=== PATIENT | female | born 1975 | race Hispanic/Latino ===

== ENCOUNTER 2016-08-25 11:22 | Outpatient (CLI) | payer OTHER ==
[2016-08-25 13:05] LABS: #Basophils 0.1 thou/uL (0.0-0.2); #Eosinphils 0.1 thou/uL (0.0-0.7); #Lymphocytes 1.8 thou/uL (1.20-3.40); #Monocytes 0.9 thou/uL (0.11-0.59); #Neutrophils 7.8 thou/uL (1.40-6.50); %Basophils 0.9 % (0.0-1.0); %Eosinophils 0.9 % (0.0-10.0); %Monocytes 8.2 % (0.0-10.0); %Neutrophils 72.9 % (42.0-75.0); Hemoglobin 10.4 g/dL (12.0-16.0); Mean Corpuscular HGB CONC 33.4 g/dL (32.0-36.0); Mean Corpuscular Hemoglobin 28.5 pg (27.0-31.0); Mean Corpuscular Volume 85.5 fl (81.0-99.0); Mean Platelet Volume 5.9 fL (7.4-10.4); Platelet Count 375 thou/uL (130-400); Red Blood Cell (RBC) Count 3.66 mill/uL (4.20-5.40); White Blood Cell (WBC) Count 10.7 thou/uL (4.8-10.8)
[2016-08-25 17:20] LABS: HIV (1/2) Antibody/Antigen Non-Reactive (NonReactive); HIV 1/2 INDEX 0.07 S/CO (<1.00)
== END 2016-08-25 11:23 | disposition home or self-care (01) ==
LOC: MADLABBHPM 11:22
PROVIDERS: ATTEND Family Medicine
DX: O09.523 Supervision of elderly multigravida, third trimester (principal)
CPT/HCPCS: 82950; 85025; 86592; 86850; 87389

== ENCOUNTER 2016-11-15 19:03 | Emergency (ER) | payer OTHER ==
[~2016-11-15 19:03] MED LIST: Iopamidol 370 76% 100 ML VIAL ONE; Sodium Chloride 0.9% 1,000 ML BAG ONE; Sodium Chloride 0.9% 100 ML BAG ONE
[2016-11-15] MEDS ORDERED: Ibuprofen 600 MG TAB ONE (19:37)
[2016-11-15 19:48] LABS: #Basophils 0.1 thou/uL (0.0-0.2); #Lymphocytes 1.1 thou/uL (1.20-3.40); #Monocytes 0.7 thou/uL (0.11-0.59); #Neutrophils 16.3 thou/uL (1.40-6.50); %Basophils 0.3 % (0.0-1.0); %Lymphocytes 6.3 % (21.0-51.0); %Monocytes 3.6 % (0.0-10.0); %Neutrophils 89.8 % (42.0-75.0); Mean Corpuscular HGB CONC 32.8 g/dL (32.0-36.0); Mean Corpuscular Hemoglobin 26.6 pg (27.0-31.0); Mean Corpuscular Volume 81.2 fl (81.0-99.0); Mean Platelet Volume 5.2 fL (7.4-10.4); Platelet Count 543 thou/uL (130-400); RBC Distribution Width 16.2 % (11.5-14.5); White Blood Cell (WBC) Count 18.2 thou/uL (4.8-10.8)
[2016-11-15 20:02] LABS: ALT (SGPT) 19 U/L (8-55); AST (SGOT) 14 U/L (5-34); Albumin 3.5 g/dL (3.5-5.0); Alkaline Phosphatase 113 U/L (40-150); Anion Gap 14 mmol/L (10-20); BUN (Urea Nitrogen) 8 mg/dL (7.0-18.7); Bilirubin, Total 0.6 mg/dL (0.2-1.2); Calc. Creatinine Clearance 0 mL/min (70-130); Calcium 8.4 mg/dL (7.8-10.44); Carbon Dioxide 23 mmol/L (22-29); Chloride 97 mmol/L (98-107); Estimated GFR-MDRD 83; Glucose 121 mg/dL (70-105); Potassium 3.7 mmol/L (3.5-5.1); Protein, Total 7.5 g/dL (6.0-8.3); Sodium 130 mmol/L (136-145)
[2016-11-15] MEDS ORDERED: Adacel (T-DAP) 0.5 ML VIAL ONE (20:03)
[2016-11-15] MEDS ORDERED: Fentanyl 100 MCG/2 ML VIAL ONE (20:03)
[2016-11-15 20:30] LABS: Clarity Clear (Clear)
[2016-11-15 20:31] LABS: Bilirubin Negative (Negative); Blood, Urine Small (Negative); Glucose, Urine (Dipstick) Negative (Negative); Leukocyte Negative (Negative); Nitrite Negative (Negative); Protein, Urine (Dipstick) Negative (Neg-Trace); Specific Gravity, Urine 1.015 (1.005-1.030); Urobilinogen 0.2 mg/dL (0.2-1.0)
[2016-11-15 20:32] LABS: Bacteria/HPF Rare-Few HPF (None Seen); Squamous Epithelial 0-3 HPF (0-3); WBC/HPF 0-3 HPF (0-3)
[2016-11-15] MEDS ORDERED: cefTRIAXone\\ROCEPHIN 2 GM VIAL ONE (20:49)
--- NOTE | 2016-11-15 21:16 | CT ---
CT ABDOMEN AND PELVIS WITH CONTRAST COMPARISON: No prior comparison. CLINICAL HISTORY: A 41-year-old female with prior and history of abdominal pain and fever. FINDINGS: There is prominent volume and heterogeneity of the uterus, which is compatible with the history of a recent section. There is overlying density of the lower abdominal and ventral pelvic wall , compatible with recent surgery. There is marked distention of the unopacified urinary bladder. N o significant pelvic ascites. No disseminated free air. The bowel is not reliably evaluated withou t the presence of enteric contrast. The solid abdominal organs reveal no evidence of acute patholog y. There is normal caliber of the imaged aorta. Patchy bibasilar densities are present. This coul d be on the basis of pneumonitis. The regional skeletal structures reveal no acute findings. IMPRESSION: 1. Marked enlargement and heterogeneity of the uterus, correlating to history of recent se ction. 2. Traversing loops of unopacified fluid-filled small bowel are present, without definitive evidenc e for a focal drainable fluid collection, within limitations. Correlate clinically to exclude a sup erimposed infectious/inflammatory process of the uterus. 3. Patchy bibasilar opacities could reflect pneumonitis. Entities such as aspiration pneumonitis c annot be excluded on the basis of this exam. Correlate clinically. POS: [facility]
--- NOTE | 2016-11-15 21:17 | RAD ---
PORTABLE UPRIGHT FRONTAL CHEST RADIOGRAPH 11/15/2016 HISTORY: Fever. COMPARISON: None. FINDINGS: No pneumothorax, pleural fluid, focal consolidation, or alveolar edema. Heart and mediastinal conto urs are unremarkable. IMPRESSION: No acute findings. POS: [facility]
== END 2016-11-15 22:20 | disposition short-term general hospital (02) ==
LOC: MADERS 19:03
DX: R50.82 Postprocedural fever (principal)
CPT/HCPCS: 36415; 51701; 71010; 74177; 80053; 81003; 81015; 83605; 85025; 87040; 87081; 87086; 87430; 90471; 90715; 96361; 96365; 96375; A4353; J0696; J3010; J7050

== ENCOUNTER 2017-09-29 14:24 | Emergency (ER) | payer OTHER, SELFPAY ==
[~2017-09-29 14:24] MED LIST changes: -Iopamidol 370 76% 100 ML VIAL ONE; -Sodium Chloride 0.9% 100 ML BAG ONE
[2017-09-29] MEDS ORDERED: diphenhydrAMINE 50 MG/ML VIAL ONE (15:21)
[2017-09-29] MEDS ORDERED: Ketorolac Tromethamine 30 MG/ML VIAL ONE (15:21)
[2017-09-29] MEDS ORDERED: Metoclopramide HCl 10 MG/2 ML VIAL ONE (15:21)
[2017-09-29 15:30] LABS: #Basophils 0.1 thou/uL (0.0-0.2); #Lymphocytes 1.7 thou/uL (1.20-3.40); #Monocytes 0.8 thou/uL (0.11-0.59); #Neutrophils 10.5 thou/uL (1.40-6.50); %Basophils 0.8 % (0.0-1.0); %Eosinophils 0.3 % (0.0-10.0); %Lymphocytes 12.9 % (21.0-51.0); %Monocytes 5.8 % (0.0-10.0); %Neutrophils 80.1 % (42.0-75.0); Hemoglobin 13.3 g/dL (12.0-16.0); Mean Corpuscular HGB CONC 33.1 g/dL (32.0-36.0); Mean Corpuscular Volume 84.7 fl (81.0-99.0); Mean Platelet Volume 5.4 fL (7.4-10.4); Platelet Count 408 thou/uL (130-400); RBC Distribution Width 12.8 % (11.5-14.5); Red Blood Cell (RBC) Count 4.76 mill/uL (4.20-5.40); White Blood Cell (WBC) Count 13.1 thou/uL (4.8-10.8)
[2017-09-29 15:36] LABS: ALT (SGPT) 8 U/L (8-55); AST (SGOT) 10 U/L (5-34); Alkaline Phosphatase 81 U/L (40-150); Anion Gap 15 mmol/L (10-20); BUN (Urea Nitrogen) 9 mg/dL (7.0-18.7); Bilirubin, Total 0.5 mg/dL (0.2-1.2); Calc. Creatinine Clearance 0 mL/min (70-130); Calcium 8.8 mg/dL (7.8-10.44); Carbon Dioxide 23 mmol/L (22-29); Chloride 101 mmol/L (98-107); Estimated GFR-MDRD Greater than 90; Globulin 3.8 g/dL (2.4-3.5); Glucose 96 mg/dL (70-105); Protein, Total 7.8 g/dL (6.0-8.3); Sodium 135 mmol/L (136-145)
[2017-09-29 15:37] LABS: BHCG - Serum Negative (NEGATIVE); Pregs Control Background? CLEAR/WHITE (CLR/WHITE); Pregs Control Bar Appear? YES (CONTROL BAR)
--- NOTE | 2017-09-29 16:12 | CT ---
CT BRAIN NONCONTRAST: HISTORY: A 42-year-old female with headache. FINDINGS: There is no midline shift or any other mass effect. There is no evidence of acute intracranial hemor rhage, large cortical infarct, obstructive hydrocephalus, or extraaxial fluid collection. The calvar ium is intact. There is partially opacification of the left maxillary sinus by severe mucosal thicke ted, only partially imaged. IMPRESSION: 1. No acute intracranial findings. 2. Left maxillary sinus mucosal disease. jn [] POS: [facility]
[2017-09-29] MEDS ORDERED: cefTRIAXone\\ROCEPHIN 1 GM VIAL ONE (16:37)
[2017-09-29 16:48] LABS: Bilirubin Negative (Negative); Blood, Urine Trace (Negative); Clarity Cloudy (Clear); Glucose, Urine (Dipstick) Negative (Negative); Leukocyte Moderate (Negative); Nitrite Negative (Negative); Protein, Urine (Dipstick) Trace mg/dL (Neg-Trace); Specific Gravity, Urine 1.015 (1.005-1.030); Urobilinogen 0.2 mg/dL (0.2-1.0); pH, Urine 8.5 (5.0-9.0)
[2017-09-29 16:57] LABS: Bacteria/HPF 2+ HPF (None Seen)
== END 2017-09-29 17:31 | disposition home or self-care (01) ==
LOC: MADERS 14:24
DX: J01.00 Acute maxillary sinusitis, unspecified (principal); N30.00 Acute cystitis without hematuria
CPT/HCPCS: 70450; 80053; 81003; 81015; 84703; 85025; 87086; 96361; 96374; 96375; J0696; J1200; J1885; J2765; J7050

== ENCOUNTER 2020-11-10 18:39 | Outpatient (CLI) | payer SELFPAY | END 2020-11-10 18:40 | disposition home or self-care (01) | LOC: MADLAB 18:39 | PROVIDERS: ATTEND Family Medicine | DX: Z01.419 Encounter for gynecological examination (general) (routine) without abnormal findings (principal) | CPT/HCPCS: 88142; G0123 ==